=== PATIENT | male | born 1965 | race Two or more races ===

== ENCOUNTER 2019-05-07 15:12 | Emergency (ER) | payer MEDICAID ==
[~2019-05-07] VITALS: Ht 165.1 cm; Wt 74.8 kg
[2019-05-07] MEDS ORDERED: FLUORESCEIN SODIUM OPHTH 1 EA STRIP ONE ×2 (15:51→16:07)
[2019-05-07] MEDS ORDERED: TETRAcaine 5 ML BOTTLE EACHEYE ONE (16:00)
[2019-05-07] MEDS ORDERED: FLUORESCEIN SODIUM OPHTH 1 EA STRIP OP ONE (16:00)
--- NOTE | 2019-05-07 16:00 | NUR ---
PATIENT CAME IN TO THE ER C/O PAIN AND REDNESS TO R EYE X 3 DAYS FROM POWDER FALLING FROM CEILING. ON ROOM AIR, BREATHING EVENLY AND UNLABORED. KEPT COMFORTABLE, WILL CONTINUE TO MONITOR ACCORDINGLY.
[2019-05-07 16:39] VITALS: BP 167/88
--- NOTE | 2019-05-07 16:41 | NUR ---
Patient discharged to home in stable condition. Written and verbal after care instructions given. Patient verbalizes understanding of instruction.
== END 2019-05-07 16:41 | disposition home or self-care (01) ==
LOC: ER 15:13
DX: S05.01XA Injury of conjunctiva and corneal abrasion without foreign body, right eye, initial encounter (principal); Z60.2 Problems related to living alone; X58.XXXA Exposure to other specified factors, initial encounter; Y93.89 Activity, other specified; Y92.89 Other specified places as the place of occurrence of the external cause; Y99.0 Civilian activity done for income or pay

== ENCOUNTER 2020-02-29 14:13 | Inpatient (IN) | payer MEDICAID ==
[~2020-02-29] VITALS: Ht 165.1 cm; Wt 74.8 kg
--- NOTE | 2020-02-29 14:40 | NUR ---
ASSUME PT CARE. BEEN C/O SOB X "3 WEEKS" STATES PROGRESSIVELY GETTING WORST. PT IS [place] SPEAKING. GOWNED. HYPOXIC PRESIDENT COLLEGE OR UNIVERSITY. AWAITING MD KITCHEN.
--- NOTE | 2020-02-29 15:11 | NUR ---
DR NGUYEN AT BEDSIDE FOR EVAL.
[2020-02-29] MEDS ORDERED: IPRATROPIUM NEB FS 0.5 MG/2.5 ML AMPUL.NEB ONE (15:16)
[2020-02-29] MEDS ORDERED: ALBUTEROL FS 2.5 MG/3 ML VIAL.NEB ONE (15:16)
--- NOTE | 2020-02-29 15:18 | NUR ---
RT AT BEDSIDE FOR BREATHING TREATMENT
--- NOTE | 2020-02-29 15:18 | NUR ---
RADIOLOGY AT BEDSIDE FOR CHEST XRAY.
[2020-02-29] MEDS ORDERED: IPRATROPIUM NEB FS 0.5 MG/2.5 ML AMPUL.NEB NEB ONE (15:30)
[2020-02-29] MEDS ORDERED: DEXAMETHASONE SOD PHOSPHATE 10 MG/ML VIAL IV ONE (15:30)
[2020-02-29] MEDS ORDERED: ALBUTEROL FS 2.5 MG/3 ML VIAL.NEB NEB ONE (15:30)
[2020-02-29 15:47] LABS: BASOPHILS # (AUTO) 0.4 /CMM (0.0-0.2); BASOPHILS % (AUTO) 4.7 % (0.0-2.0); EOSINOPHILS % (AUTO) 1.3 % (0.0-6.0); HEMATOCRIT 43 % (39-51); HEMOGLOBIN 15.1 g/dL (13.5-17.5); LYMPHOCYTES # (AUTO) 0.6 /CMM (0.8-4.8); LYMPHOCYTES % (AUTO) 8.5 % (20.0-44.0); MEAN CORPUSCULAR HGB CONC 35 g/dl (31.0-36.0); MEAN CORPUSCULAR VOLUME 95 fL (80-96); MONOCYTES # (AUTO) 0.5 /CMM (0.1-1.30); MONOCYTES % (AUTO) 7.2 % (2.0-12.0); NEUTROPHILS % (AUTO) 78.3 % (43.0-81.0); PLATELET COUNT (AUTO) 593 /CMM (150-450); RED BLOOD CELL COUNT(AUTO) 4.57 MIL/uL (4.5-6.0); WHITE BLOOD COUNT (AUTO) 7.6 K/uL (4.3-11.0)
[2020-02-29] MEDS ORDERED: DEXAMETHASONE SOD PHOSPHATE 10 MG/ML VIAL ONE (15:53)
[2020-02-29] MEDS ORDERED: CEFTRIAXONE 1GM BAG (ER ONLY) 50 ML IV ONE (16:00)
[2020-02-29] MEDS ORDERED: AZITHROMYCIN 500 MG in IV D5W 250 ML IV ONE (16:00)
[2020-02-29 16:25] LABS: CALCIUM, SERUM 9.3 mg/dL (8.5-10.1); CARBON DIOXIDE 26 mmol/L (21-32); CHLORIDE 104 mmol/L (98-107); CREATININE 0.8 mg/dL (0.6-1.3); GLUCOSE 100 mg/dL (74-106); POTASSIUM 4.1 mmol/L (3.5-5.1); SODIUM SERUM 140 mmol/L (136-145); UREA NITROGEN, BLOOD 17 mg/dL (7-18)
[2020-02-29 16:29] LABS: ALANINE AMINOTRANSFERASE 38 U/L (12-78); ALBUMIN 2.2 g/dL (3.4-5.0); ALKALINE PHOSPHATASE 98 U/L (46-116); ASPARTATE AMINOTRANSFERASE 57 U/L (15-37); BILIRUBIN,TOTAL 0.6 mg/dL (0.2-1.0); TOTAL PROTEIN, SERUM 8.3 g/dL (6.4-8.2)
[2020-02-29] MEDS ORDERED: MAGNESIUM HYDROXIDE 30 ML UDC PO PRN (16:30)
[2020-02-29] MEDS ORDERED: HYDROCODONE/APAP 5/325MG TABLET PO PRN (16:30)
[2020-02-29] MEDS ORDERED: Z GUARD REMEDY 2 OZ OINT TP PRN (16:30)
[2020-02-29] MEDS ORDERED: ONDANSETRON HCL/PF 4 MG/2 ML VIAL IVP PRN (16:30)
--- NOTE | 2020-02-29 16:39 | NUR ---
PT SATTING AT 91% ON 6L NC. DR NGUYEN MADE AWARE.
[2020-02-29 18:40] LABS: BILIRUBIN,DIRECT 0.2 mg/dL (0.0-0.2)
--- NOTE | 2020-02-29 18:40 | NUR ---
DAUGHTER CALLED. LEFT CONTACT #[phone]
--- NOTE | 2020-02-29 19:45 | NUR ---
REPORT GIVEN TO DANIEL SULLIVAN FOR MAURICE.
--- NOTE | 2020-02-29 19:48 | NUR ---
REC'D REPORT FROM LAURIE MARTINEZ FOR MAURICE. PT RESTING COMFORTABLY IN BED. STILL ON HIGH FLOW O2 60L/MIN, 93% O2. PT TOLERATING WELL, O2 SAT 99%. RESPIRATIONS EVEN AND UNLABORED. NO ACUTE DISTRESS NOTED AT THIS TIME. PT STILL ON CONTINUOUS CROP FARM HELPER AND PULSE OX, WILL CONTINUE TO MONITOR
--- NOTE | 2020-02-29 20:39 | NUR ---
SWAB COLLECTED AND SENT TO THE LAB.
[2020-02-29] MEDS ORDERED: ENOXAPARIN SODIUM 40 MG/0.4 ML DISP.SYRIN SQ SCH (21:00)
--- NOTE | 2020-03-01 03:21 | NUR ---
PT RESTING COMFORTABLY IN BED. VITAL SIGNS STABLE. STILL ON CONTINUOUS PROSECUTING ATTORNEY AND PULSE OX, WILL CONTINUE TO MONITOR
[2020-03-01 05:19] LABS: MONOCYTES # (AUTO) 0.3 /CMM (0.1-1.30); WHITE BLOOD COUNT (AUTO) 4.4 K/uL (4.3-11.0)
[2020-03-01 05:24] LABS: BASOPHILS % (AUTO) 0.2 % (0.0-2.0); HEMATOCRIT 41 % (39-51); HEMOGLOBIN 14.2 g/dL (13.5-17.5); LYMPHOCYTES # (AUTO) 0.6 /CMM (0.8-4.8); LYMPHOCYTES % (AUTO) 12.9 % (20.0-44.0); MEAN CORPUSCULAR HGB CONC 35 g/dl (31.0-36.0); MEAN CORPUSCULAR VOLUME 94 fL (80-96); MONOCYTES % (AUTO) 6.8 % (2.0-12.0); NEUTROPHILS # (AUTO) 3.6 /CMM (1.8-8.9); NEUTROPHILS % (AUTO) 80.1 % (43.0-81.0); PLATELET COUNT (AUTO) 587 /CMM (150-450); RED BLOOD CELL COUNT(AUTO) 4.29 MIL/uL (4.5-6.0)
[2020-03-01 05:30] LABS: CALCIUM, SERUM 9.3 mg/dL (8.5-10.1); CREATININE 0.9 mg/dL (0.6-1.3); MAGNESIUM 2.8 mg/dL (1.8-2.4); PHOSPHORUS 4.1 mg/dL (2.5-4.9); POTASSIUM 4.3 mmol/L (3.5-5.1)
--- NOTE | 2020-03-01 07:23 | NUR ---
REPORT GIVEN TO LAURIE MARTINEZ FOR MAURICE
[2020-03-01] MEDS: DEXAMETHASONE SOD PHOSPHATE 10 MG/ML VIAL IV SCH (10:00)
--- NOTE | 2020-03-01 11:30 | NUR ---
RECEIVED AND RESUMED PT CARE. PT IN BED, AAOX4. ON HIFLOW O2 @ 65LPM @ 100%. BREATHING REGULAR BUT SHALLOW. VSS.
[2020-03-01 11:46] LABS: D-DIMER 3.89 mg/L(FEU (0.17-0.50)
[2020-03-01] MEDS: ENOXAPARIN SODIUM 40 MG/0.4 ML DISP.SYRIN SQ SCH (13:30)
[2020-03-01] MEDS: CEFTRIAXONE 1 G in IV D5W 50 ML IV SCH (16:11)
[2020-03-01] MEDS: AZITHROMYCIN 500 MG in IV D5W 250 ML IV SCH (17:15)
--- NOTE | 2020-03-01 18:16 | NUR ---
COVID PCR RESULT: POSITIVE +
--- NOTE | 2020-03-01 18:40 | NUR ---
PT AMBULATED TO BATHROOM ON STAEADY GAIT W/O ASSIST. TOLERATED WELL WITHOUT ANY SOB.
--- NOTE | 2020-03-01 20:23 | NUR ---
RT AT BEDSIDE.
--- NOTE | 2020-03-01 21:57 | NUR ---
PT AMBULATED TO THE RESTROOM.
--- NOTE | 2020-03-01 23:24 | NUR ---
TOOK OVER PT CARE FROM, ABHILASH SULLIVAN. PT AAOX4. IN BED RESTING COMFORTABLY. PROVIDED WITH BLANKET AND PILLOW. PT ON MONITOR AND PULSE OX. VSS.
--- NOTE | 2020-03-01 23:26 | NUR ---
pt endorsed to lea Bautista for luis miguel
--- NOTE | 2020-03-01 23:31 | NUR ---
PT PROVIDED WITH BLANKETS AND PILLOW, REPOSITIONED Q2 HRS.
--- NOTE | 2020-03-01 23:48 | NUR ---
PT REQUESTED OJ, SUGAR CHECKED AT 132, PT WILL BE PROVIDED WITH WATER.
[2020-03-02] MEDS: ENOXAPARIN SODIUM 40 MG/0.4 ML DISP.SYRIN SQ SCH ×2 (00:32→13:20)
--- NOTE | 2020-03-02 01:09 | NUR ---
PT REPOSITIONED, ASLEEP. VSS.
--- NOTE | 2020-03-02 03:21 | NUR ---
PT ASLEEP, VSS. APPEARS TO BE COMFORTABLE, CALL LIGHT AT BEDSIDE.
--- NOTE | 2020-03-02 04:59 | NUR ---
BRACELET MAKER NOVELTY AT BEDSIDE FOR MONRING LABS.
[2020-03-02 06:04] LABS: BASOPHILS # (AUTO) 0.1 /CMM (0.0-0.2); BASOPHILS % (AUTO) 1.1 % (0.0-2.0); HEMATOCRIT 41 % (39-51); HEMOGLOBIN 14.2 g/dL (13.5-17.5); LYMPHOCYTES # (AUTO) 0.8 /CMM (0.8-4.8); LYMPHOCYTES % (AUTO) 6.4 % (20.0-44.0); MEAN CORPUSCULAR HGB CONC 35 g/dl (31.0-36.0); MEAN CORPUSCULAR VOLUME 95 fL (80-96); MONOCYTES # (AUTO) 0.7 /CMM (0.1-1.30); MONOCYTES % (AUTO) 5.4 % (2.0-12.0); NEUTROPHILS # (AUTO) 11.2 /CMM (1.8-8.9); NEUTROPHILS % (AUTO) 87.1 % (43.0-81.0); PLATELET COUNT (AUTO) 657 /CMM (150-450); RED BLOOD CELL COUNT(AUTO) 4.33 MIL/uL (4.5-6.0); WHITE BLOOD COUNT (AUTO) 12.9 K/uL (4.3-11.0)
[2020-03-02 06:21] LABS: CALCIUM, SERUM 8.9 mg/dL (8.5-10.1); CREATININE 0.7 mg/dL (0.6-1.3); POTASSIUM 3.6 mmol/L (3.5-5.1)
--- NOTE | 2020-03-02 06:44 | NUR ---
PT REPOSITIONED, PROVIDED WITH BLANKETS.
--- NOTE | 2020-03-02 07:18 | NUR ---
REPORT GIVEN TO RAUL SULLIVAN FOR MAURICE
[2020-03-02 07:32] LABS: C-REACTIVE PROTEIN 12.2 mg/dL (0.0-0.9)
[2020-03-02] MEDS: DEXAMETHASONE SOD PHOSPHATE 10 MG/ML VIAL IV SCH (08:19)
--- NOTE | 2020-03-02 09:23 | NUR ---
PATIENT A/OX4, ON HIGH FLOW AND TOLERATING WELL, NO DSITRESS NOTED. BREAKFAST PROVIDED.
[2020-03-02] MEDS ORDERED: CLONIDINE HCL 0.1 MG TABLET PO PRN (10:00)
[2020-03-02] MEDS: NIFEdipine XL (30MG) 30 MG TAB PO SCH (10:00)
[2020-03-02 14:56] LABS: ALBUMIN 2.3 g/dL (3.4-5.0); BILIRUBIN,DIRECT 0.1 mg/dL (0.0-0.2); BILIRUBIN,TOTAL 0.3 mg/dL (0.2-1.0); TOTAL PROTEIN, SERUM 7.9 g/dL (6.4-8.2)
[2020-03-02] MEDS ORDERED: REMDESIVIR (CHARGED) 200 MG, *LOADING DOSE 1 EA in IV NS 0.9% 210 ML IV ONE (15:00)
--- NOTE | 2020-03-02 15:18 | NUR ---
PATIENT ON HIGH FLOW SAME SETTINGS. AND TOLERATINGW ELL. ATE LUNCH. A/OX4, NEEDS ATTENDED. REPORT GIVEN TO SEDA SULLIVAN FOR MAURICE. ENDORSED REMDESIVIR.
--- NOTE | 2020-03-02 15:49 | NUR ---
PATIENT TRANSFERRED TO ROOM 206-1 VIA ACLS PROTOCOL WITH RT PRESENT. PATIENT A/OX4, NO DISTRESS NOTED. ENDORSED TO SEDA SULLIVAN. Addendum: 03/02/20 at 1549 by ROBLADEANCES ADDENDUM: ENDORSED REMDESIVIR.
[2020-03-02 16:00] VITALS: BP 126/79
--- NOTE | 2020-03-02 16:30 | NUR ---
RN NOTES PT ARRIVED FROM ER IN A GURNEY PT AWAKE ALERT AND ORIENTED X4 PUPILS EQUAL AND REACTIVE TO LIGHT AND ACCOMMODATION. IS A MONGOLIAN SPEAKER UNDERSTANDS VERY LITTLE SLOVENIAN. NO PAIN OR DISCOMFORT VISIBLE OR REPORTED. NO SOB NOTED OR REPORTED. PT IS ON HIGH FLOW 60 L OF OXYGEN WITH A OXYGEN SATURATION OF 94%. LUNG SOUNDS ARE CLEAR BILATERALLY RR IS 19 ON TELE MONITORING RHYTHM IS SINUS RHYTHM 66. SKIN IS CLEAN WARM AND DRY NO SIGNS OF EDEMA NOTED NO SKIN DISCOLORATION SKIN TURGOR IS FAIR. ABDOMEN IS NON DISTENDED NON TENDER TO TOUCH. ACTIVE BOWEL SOUNDS HEARD IN ALL FOUR QUADRANTS. PATIENT IS AMBULATORY. PATIENT HAS IV ACCESS ON THE LEFT AC 18 GAUGE NO PAIN SWELLING OR REDNESS NOTED AT SITE. CALL LIGHT WITHIN REACH.BED LOCKED IN POSITION PATIENT ORIENTED TO UNIT. WILL CONTINUE TO MONITOR Addendum: 03/02/20 at 1911 by CHERYL PRO RN CALL LIGHT WITHIN REACH ALL NURSING NEEDS MET AT THIS TIME. WILL CONTINUE TO MONITOR
[2020-03-02] MEDS: CEFTRIAXONE 1 G in IV D5W 50 ML IV SCH (17:39)
[2020-03-02] MEDS: AZITHROMYCIN 500 MG in IV D5W 250 ML IV SCH (18:15)
--- NOTE | 2020-03-02 18:20 | NUR ---
PT DESATURATES TO 83% AFTER EATING HIS DINNER WHEN HE REMOVES HIS HIGH FLOW OXYGEN.BUT PT DENIES ANY SOB.PT EVEN WENT TO THE TOILET ON ROOM AIR DENYING FEELING DIZZY. PT RESUMED BACK TO 95%O2 SAT ON HIGH FLOW.WITH OCCASIONAL DRY COUGH.INSTRUCTED THAT WE NEED TO COLLECT RESPIRATORY SPUTUM C/S G/S.
--- NOTE | 2020-03-02 18:30 | NUR ---
PT REFUSED CONVALESCENT PLASMA TRANSFUSION EXPLAINING THE RISKS AND BENEFITS,PT INSISTS TO REFUSE.
--- NOTE | 2020-03-02 19:09 | NUR ---
RN NOTES PT AWAKE ALERT AND ORIENTED X4 PUPILS EQUAL AND REACTIVE TO LIGHT AND ACCOMMODATION. IS A KOREAN SPEAKER UNDERSTANDS VERY LITTLE ESTONIAN. NO PAIN OR DISCOMFORT VISIBLE OR REPORTED. NO SOB NOTED OR REPORTED. PT IS ON HIGH FLOW 60 L OF OXYGEN WITH A OXYGEN SATURATION OF 94%. LUNG SOUNDS ARE CLEAR BILATERALLY RR IS 19 ON TELE MONITORING RHYTHM IS SINUS RHYTHM 66. SKIN IS CLEAN WARM AND DRY NO SIGNS OF EDEMA NOTED NO SKIN DISCOLORATION SKIN TURGOR IS FAIR. ABDOMEN IS NON DISTENDED NON TENDER TO TOUCH. WILL ENDORSE CARE TO ON COMING NURSE
--- NOTE | 2020-03-02 19:30 | NUR ---
RN OPENING NOTES Received patient resting on bed, resting, A/O x4, on HFNC @ 60LPM FiO2 100%, saturating well, denies any discomfort at this time. Pt refused blood transfusion/convalescent plasma at this time. Kept on bed clean, dry and comfortable. On fall and aspiration precautions. Will continue to monitor accordingly.
[2020-03-02 20:00] VITALS: BP 114/78
[2020-03-03] VITALS: BP 105/55
[2020-03-03] MEDS: ENOXAPARIN SODIUM 40 MG/0.4 ML DISP.SYRIN SQ SCH ×2 (00:30→11:47)
--- NOTE | 2020-03-03 02:15 | NUR ---
REPORTS RECEIVED FROM LAURIE HUGHES FOR CONTINUITY OF CARE.
--- NOTE | 2020-03-03 02:15 | NUR ---
RECEIVED PATIENT IN BED, ASLEEP. NO S/S OF DISTRESS NOTED. CALL LIGHT WITHIN REACH. BED IN LOWEST AND LOCKED POSITION.ON HFNC AT60L/MIN.
[2020-03-03 04:00] VITALS: BP 113/68
--- NOTE | 2020-03-03 06:45 | NUR ---
TERMITE TREATER HELPER CLOSING NOTES: PATIENT IN BED, AWAKE, A/O X4. NO S/S OF DISTRESS NOTED. CALL LIGHT WITHIN REACH. BED IN LOWEST AND LOCKED POSITION. RESTED THROUGHOUT THE NIGHT.
[2020-03-03 08:00] VITALS: BP 101/52
--- NOTE | 2020-03-03 08:00 | NUR ---
EMPLOYMENT TRAINER OPENING NOTES RECEIVED PT ON BED, AAOX4, RESPONSIVE TO ALL STIMULI. NO PRESENCE OF ACUTE RESPIRATORY DISTRESS, HIGH FLOW 60 LPM. ABD SOFT AND NON DISTENDED WITH ACTIVE BOWEL SOUNDS. DENIES PAIN AND DISCOMFORT. SKIN WARM TO TOUCH AND DRY. IV LINE AT LAC #18 PATENT IN FLUSHING, NO S/SX OF INFILTRATION. TELE MONITOR SHOWS NSR 64. COVID POSITIVE, PPE UTILIZED PER HOSPITAL PROTOCOL. BED IN LOW LOCKED POSITION, SRX2 FOR SAFETY, CALL LIGHT WITHIN REACH. WILL CONT TO MONITOR CARE.
[2020-03-03 08:02] LABS: BASOPHILS % (AUTO) 0.2 % (0.0-2.0); HEMATOCRIT 42 % (39-51); LYMPHOCYTES # (AUTO) 1.2 /CMM (0.8-4.8); LYMPHOCYTES % (AUTO) 11.8 % (20.0-44.0); MEAN CORPUSCULAR HGB CONC 35 g/dl (31.0-36.0); MEAN CORPUSCULAR VOLUME 94 fL (80-96); MONOCYTES # (AUTO) 0.7 /CMM (0.1-1.30); MONOCYTES % (AUTO) 7.1 % (2.0-12.0); NEUTROPHILS # (AUTO) 8.4 /CMM (1.8-8.9); NEUTROPHILS % (AUTO) 80.9 % (43.0-81.0); PLATELET COUNT (AUTO) 692 /CMM (150-450); RED BLOOD CELL COUNT(AUTO) 4.51 MIL/uL (4.5-6.0); WHITE BLOOD COUNT (AUTO) 10.5 K/uL (4.3-11.0)
[2020-03-03 08:05] LABS: ALBUMIN 2.3 g/dL (3.4-5.0); BILIRUBIN,DIRECT 0.2 mg/dL (0.0-0.2); BILIRUBIN,TOTAL 0.4 mg/dL (0.2-1.0); CALCIUM, SERUM 8.6 mg/dL (8.5-10.1); CREATININE 0.7 mg/dL (0.6-1.3); POTASSIUM 3.9 mmol/L (3.5-5.1); TOTAL PROTEIN, SERUM 7.6 g/dL (6.4-8.2)
--- NOTE | 2020-03-03 08:15 | NUR ---
SIX PACK PACKER NOTES PER RT. HIGH FLOW RATE REDUCED TO 50 LPM SATING 100%.
[2020-03-03 08:20] LABS: C-REACTIVE PROTEIN 5.4 mg/dL (0.0-0.9)
[2020-03-03] MEDS: NIFEdipine XL (30MG) 30 MG TAB PO SCH (09:00)
[2020-03-03] MEDS: DEXAMETHASONE SOD PHOSPHATE 10 MG/ML VIAL IV SCH (09:23)
--- NOTE | 2020-03-03 09:23 | NUR ---
CHEMICAL PLANT TECHNICAL DIRECTOR NOTES NIFEDIPINE ER HELD DUE TO LOW BP 101/52 MM HG, HR 59.
[2020-03-03 12:00] VITALS: BP 101/54
[2020-03-03] MEDS: REMDESIVIR (CHARGED) 100 MG in IV NS 0.9% 230 ML IV SCH (14:57)
--- NOTE | 2020-03-03 15:18 | NUR ---
PROCESS PLANT OPERATOR NOTES PER RT, HIGH FLOW REDUCED TO 40 LPM WITH FIO2 AT 100%.
[2020-03-03 16:00] VITALS: BP 104/63
--- NOTE | 2020-03-03 19:07 | NUR ---
VICE PRESIDENT OF ADVERTISING CLOSING NOTES PT AAOX4. TOLERATING HIGH FLOW AT 50 LPM, FIO2 AT 100%, SATING 98%. BM TODAY. DENIES PAIN AND DISCOMFORT. NO NEW SKIN BREAKDOWN. IV SITE AT LEFT HAND #18. SITE WITH NO S/SX OF INFILTRATION. COVID+ WITH PPE UTILIZED PROPERLY. TELE MONITOR SHOWS NSR 74. ALL CARE ATTENDED. ENDORSED CARE TO NEXT SHIFT.
--- NOTE | 2020-03-03 19:35 | NUR ---
OPERATIONS SUPERVISOR 2ND SHIFT NOTES PATIENT IN BED, AWAKE, ALERT AND ORIENTED X 4. BREATHING EVEN AND UNLABORED ON 50LMP. SHOWS NO SIGNS OF ACUTE RESPIRATORY DISTRESS. NO ACUTE PAIN. TELE MONITOR SR/SB. IV ON LAC 18G ITS CLEAN DRY AND INTACT. SHOWS NO SIGNS OF INFILTRATION, NO REDNESS. SAFETY PRECAUTIONS IN PLACE. BED IN LOWEST POSITION, LOCKED, AND CALL LIGHT KEPT WITHIN REACH. WILL CONTINUE TO MONITOR.
[2020-03-03 20:00] VITALS: BP 132/67
[2020-03-04] VITALS: BP 107/61
[2020-03-04] MEDS: ENOXAPARIN SODIUM 40 MG/0.4 ML DISP.SYRIN SQ SCH ×2 (00:19→11:55)
--- NOTE | 2020-03-04 00:19 | NUR ---
ONLINE ADVERTISING ANALYST NOTES LOVENOX DUE AT 0030. PT REFUSED MEDICATION, EDUCATED ON RISKS AND BENEFITS. MEDICATION WASTED IN PROPER DISPOSAL BIN.
--- NOTE | 2020-03-04 03:03 | NUR ---
PATIENT RECEIVED ON HFNC 40L 100%, TOLERATING WELL WITH NO DISTRESS/SOB NOTED. AMBU BAG AT BEDSIDE. HFNC ALARM AUDIBLE. Addendum: 03/04/20 at 0304 by DONALD GODINEZ RT Amended: Links added.
[2020-03-04 04:00] VITALS: BP 111/72
--- NOTE | 2020-03-04 06:34 | NUR ---
TOOL CRIB CLERK NOTES PATIENT IN BED, ASLEEP, ALERT AND ORIENTED X 4. BREATHING EVEN AND UNLABORED ON 50LPM. SHOWS NO SIGNS OF ACUTE RESPIRATORY DISTRESS. NO ACUTE PAIN. TELE MONITOR SR/SB. IV ON LAC 18G ITS CLEAN DRY AND INTACT. SHOWS NO SIGNS OF INFILTRATION, NO REDNESS. ALL DUE MEDICATIONS GIVEN. SAFETY PRECAUTIONS IN PLACE. BED IN LOWEST POSITION, LOCKED, AND CALL LIGHT KEPT WITHIN REACH. WILL ENDORSE TO ONCOMING NURSE.
[2020-03-04 07:08] LABS: BASOPHILS % (AUTO) 0.2 % (0.0-2.0); EOSINOPHILS % (AUTO) 0.1 % (0.0-6.0); HEMATOCRIT 41 % (39-51); HEMOGLOBIN 14.1 g/dL (13.5-17.5); LYMPHOCYTES # (AUTO) 1.1 /CMM (0.8-4.8); LYMPHOCYTES % (AUTO) 13.2 % (20.0-44.0); MEAN CORPUSCULAR HGB CONC 35 g/dl (31.0-36.0); MEAN CORPUSCULAR VOLUME 94 fL (80-96); MONOCYTES # (AUTO) 0.7 /CMM (0.1-1.30); MONOCYTES % (AUTO) 8.2 % (2.0-12.0); NEUTROPHILS # (AUTO) 6.4 /CMM (1.8-8.9); NEUTROPHILS % (AUTO) 78.3 % (43.0-81.0); PLATELET COUNT (AUTO) 626 /CMM (150-450); RED BLOOD CELL COUNT(AUTO) 4.31 MIL/uL (4.5-6.0); WHITE BLOOD COUNT (AUTO) 8.1 K/uL (4.3-11.0)
--- NOTE | 2020-03-04 07:25 | NUR ---
PACK MASTER NOTES PATIENT RECEIVED IN BED, ALERT AND ORIENTED X 4. ON CORPORATE SERVICES MANAGER SINUS RHYTHM 62. PATIENT BREATHING NON-LABORED AND NO RESPIRATORY DISTRESS AT THIS TIME. IV ACCESS INTACT AND PATENT. PATIENT PRESENTING WITH NO PAIN AT THIS TIME. SAFETY PRECAUTIONS IMPLEMENTED WITH BED LOCKED, BILATERAL SIDE RAILS UP, BED ALARM ON, BED IN THE LOWEST POSITION, AND CALL LIGHT WITHIN EASY REACH, WILL CONTINUE TO MONITOR.
[2020-03-04 07:52] LABS: ALBUMIN 2.2 g/dL (3.4-5.0); BILIRUBIN,DIRECT 0.1 mg/dL (0.0-0.2); BILIRUBIN,TOTAL 0.4 mg/dL (0.2-1.0); CALCIUM, SERUM 8.3 mg/dL (8.5-10.1); CREATININE 0.7 mg/dL (0.6-1.3); POTASSIUM 3.7 mmol/L (3.5-5.1); TOTAL PROTEIN, SERUM 6.7 g/dL (6.4-8.2)
[2020-03-04 08:00] VITALS: BP 103/60
[2020-03-04] MEDS: DEXAMETHASONE SOD PHOSPHATE 10 MG/ML VIAL IV SCH (08:43)
[2020-03-04] MEDS: NIFEdipine XL (30MG) 30 MG TAB PO SCH (08:44)
[2020-03-04] MEDS: MAG HYDROX/AL HYDROX/SIMETH 30 ML UDC PO PRN (10:47)
[2020-03-04 12:00] VITALS: BP 107/64
[2020-03-04] MEDS: REMDESIVIR (CHARGED) 100 MG in IV NS 0.9% 230 ML IV SCH (15:02)
[2020-03-04 16:00] VITALS: BP 123/75
--- NOTE | 2020-03-04 18:53 | NUR ---
RN HYPERBARIC NOTES PATIENT IN BED RESTING COMFORTABLY, ALERT AND ORIENTED X 4. ON PHYSICIST SOLID STATE SINUS TRACEE 53. PATIENT BREATHING NON-LABORED AND NO RESPIRATORY DISTRESS AT THIS TIME. IV ACCESS INTACT AND PATENT SALINE LOCK. PATIENT PRESENTING WITH NO PAIN AT THIS TIME. MET ALL OF PATIENT'S NEEDS. SAFETY PRECAUTIONS IMPLEMENTED WITH BED LOCKED, BILATERAL SIDE RAILS UP, BED ALARM ON, BED IN THE LOWEST POSITION, AND CALL LIGHT WITHIN EASY REACH. WILL ENDORSE PLAN OF CARE TO UPCOMING RN.
--- NOTE | 2020-03-04 19:35 | NUR ---
CLINICAL DATA ASSISTANT NOTES PATIENT IN BED, AWAKE, ALERT AND ORIENTED X 4. BREATHING EVEN AND UNLABORED ON 50LMP. SHOWS NO SIGNS OF ACUTE RESPIRATORY DISTRESS. NO ACUTE PAIN. TELE MONITOR SR/SB. IV ON LAC 18G ITS CLEAN DRY AND INTACT.SHOWS NO SIGNS OF INFILTRATION, NO REDNESS. PT REFUSED CONVALESCENT PLASMA. SHOWS NO SIGNS OF INFILTRATION, NO REDNESS. SAFETY PRECAUTIONS IN PLACE. BED IN LOWEST POSITION, LOCKED, AND CALL LIGHT KEPT WITHIN REACH. WILL CONTINUE TO MONITOR.
[2020-03-05] MEDS: ENOXAPARIN SODIUM 40 MG/0.4 ML DISP.SYRIN SQ SCH ×2 (00:16→12:22)
--- NOTE | 2020-03-05 07:15 | NUR ---
RN Notes Patient is noted in bed, awake, alert and oriented x4 and able to make needs known. Breathing even and non labored currently receiving high flow o2 at 50L/min. No acute distress noted. Currently on tele monitor with SR/SB. IV site noted to L AC 18G noted to be patent and intact. No signs of infiltration noted. Bed in lowest position, locked and call light within reach.
[2020-03-05 07:22] LABS: BASOPHILS % (AUTO) 0.2 % (0.0-2.0); EOSINOPHILS % (AUTO) 0.4 % (0.0-6.0); HEMATOCRIT 41 % (39-51); HEMOGLOBIN 14.1 g/dL (13.5-17.5); LYMPHOCYTES # (AUTO) 1.2 /CMM (0.8-4.8); LYMPHOCYTES % (AUTO) 15.1 % (20.0-44.0); MEAN CORPUSCULAR HGB CONC 35 g/dl (31.0-36.0); MEAN CORPUSCULAR VOLUME 93 fL (80-96); MONOCYTES # (AUTO) 0.7 /CMM (0.1-1.30); MONOCYTES % (AUTO) 8.4 % (2.0-12.0); NEUTROPHILS % (AUTO) 75.9 % (43.0-81.0); PLATELET COUNT (AUTO) 611 /CMM (150-450); RED BLOOD CELL COUNT(AUTO) 4.35 MIL/uL (4.5-6.0); WHITE BLOOD COUNT (AUTO) 7.9 K/uL (4.3-11.0)
[2020-03-05 07:54] LABS: ALBUMIN 2.3 g/dL (3.4-5.0); BILIRUBIN,DIRECT 0.2 mg/dL (0.0-0.2); BILIRUBIN,TOTAL 0.4 mg/dL (0.2-1.0); CALCIUM, SERUM 8.3 mg/dL (8.5-10.1); CREATININE 0.7 mg/dL (0.6-1.3); POTASSIUM 3.9 mmol/L (3.5-5.1); TOTAL PROTEIN, SERUM 6.7 g/dL (6.4-8.2)
[2020-03-05 08:00] VITALS: BP 105/81
[2020-03-05 08:41] VITALS: BP 105/81
[2020-03-05] MEDS: NIFEdipine XL (30MG) 30 MG TAB PO SCH (08:48)
[2020-03-05] MEDS: DEXAMETHASONE SOD PHOSPHATE 10 MG/ML VIAL IV SCH (09:09)
[2020-03-05 12:00] VITALS: BP 101/56
[2020-03-05] MEDS: ACETAMINOPHEN 325 MG TABLET PO PRN ×2 (12:56→22:17)
[2020-03-05] MEDS: GUAIFENESIN/D-METHORPHAN HB 5 ML UDC PO PRN ×2 (12:56→22:17)
[2020-03-05 16:00] VITALS: BP 98/58
[2020-03-05] MEDS: REMDESIVIR (CHARGED) 100 MG in IV NS 0.9% 230 ML IV SCH (16:10)
--- NOTE | 2020-03-05 19:30 | NUR ---
RN Notes Patient is noted in bed, awake, alert and oriented x4 and able to make needs known. Breathing even and non labored currently receiving 6L via NC and tolerating well. No episodes of desaturation or acute distress noted. Continues on tele monitor with SR/SB noted. IV site noted to RAC at 20G, patent and intact, no signs of infiltration noted. All meds given as ordered and tolerated well. Bed in lowest position, locked and call light within reach. Will endorse to oncoming shift.
[2020-03-05 20:00] VITALS: BP_SYST 103; BP_DIAS 51; BP_DIAS 52
--- NOTE | 2020-03-05 20:00 | NUR ---
licensed massage therapist opening notes Received Pt from morning nurse. Pt is sitting in bed comfortably in bed. Pt is alert and orientedX4. Respiration on 5 L NC. No SOB. No S/s of distress noted. IV sites at LAC# 18 is clean, intact and flushes well, SL. Tele monitor showed SR HR at 78 bpm. Safety precautions is maintained. Bed at low position, brakes locked, side rails upX2, urinal at the bed side and call light is within reach. Will continue to monitor. Addendum: 03/06/20 at 0745 by JENIFER العلي RN IV site at R forearm# 18 is clean, intact, flushes well, SL.
--- NOTE | 2020-03-05 22:17 | NUR ---
dairy cattle farm manager notes Pt's complaining of cough and requesting medication. Administered robitussin Dm 10 ml/po as ordered for cough. Safety precautions is maintained. Will continue to monitor.
[2020-03-06] VITALS: BP 101/52
[2020-03-06] MEDS: ENOXAPARIN SODIUM 40 MG/0.4 ML DISP.SYRIN SQ SCH ×2 (00:17→21:44)
[2020-03-06 04:00] VITALS: BP 95/58
--- NOTE | 2020-03-06 06:47 | NUR ---
supervisor home economics notes Pt refused morning labs. Offered multiple times. Explained risks and benefits. Pt get agitated easily. Pt keep refusing. Pt stated "You put it everyday!!" Informed powder mixer to come again later.
--- NOTE | 2020-03-06 07:10 | NUR ---
storekeeper engineering closing notes Pt is resting in bed comfortably in bed. Pt is alert and orientedX4. Respiration on 5 L NC. No SOB. No S/s of distress noted. IV sites at R forearm# 18 is clean, intact and flushes well, SL. Tele monitor showed Sinus todd HR at 54 bpm. VS is stable. Afebrile. Routine meds were given as ordered. Kept Pt clean, dry and comfortable. All needs met and attended. Safety precautions is maintained. Bed at low position, brakes locked, side rails upX2, urinal at the bed side and call light is within reach. Will endorse to morning nurse for MAURICE.
--- NOTE | 2020-03-06 07:15 | NUR ---
RN Notes Patient Received. Patient is noted in bed, awake, alert and oriented x4. Patient is able to make needs known. Breathing is even and on labored currently on 5L via NC with no signs of acute distress noted. IV site is noted to Right forearm with 18G noted to be patent and intact. No signs of infiltration noted. Bed is in lowest position and locked. Call light within reach. Will continue plan of care as ordered.
[2020-03-06 08:00] VITALS: BP_SYST 104; BP_SYST 106; BP_SYST 87; BP_DIAS 45; BP_DIAS 55; BP_DIAS 56
[2020-03-06] MEDS: DEXAMETHASONE SOD PHOSPHATE 10 MG/ML VIAL IV SCH (09:26)
[2020-03-06] MEDS: NIFEdipine XL (30MG) 30 MG TAB PO SCH (09:26)
[2020-03-06 12:00] VITALS: BP 106/55
--- NOTE | 2020-03-06 12:34 | NUR ---
RN NOTES PATIENT REQUESTED FOR LOVENOX TO BE GIVEN AT NOC TIME, INFORMED DR. DAMON WITH ORDER TO CHANGE TIME OF LOVENOX ADMINISTRATION TO NOC.
[2020-03-06 14:32] LABS: BASOPHILS % (AUTO) 0.3 % (0.0-2.0); EOSINOPHILS % (AUTO) 0.3 % (0.0-6.0); HEMATOCRIT 45 % (39-51); HEMOGLOBIN 15.7 g/dL (13.5-17.5); LYMPHOCYTES # (AUTO) 0.7 /CMM (0.8-4.8); LYMPHOCYTES % (AUTO) 7.6 % (20.0-44.0); MEAN CORPUSCULAR HGB CONC 35 g/dl (31.0-36.0); MEAN CORPUSCULAR VOLUME 94 fL (80-96); MONOCYTES # (AUTO) 0.7 /CMM (0.1-1.30); MONOCYTES % (AUTO) 6.7 % (2.0-12.0); NEUTROPHILS # (AUTO) 8.3 /CMM (1.8-8.9); NEUTROPHILS % (AUTO) 85.1 % (43.0-81.0); PLATELET COUNT (AUTO) 643 /CMM (150-450); RED BLOOD CELL COUNT(AUTO) 4.79 MIL/uL (4.5-6.0); WHITE BLOOD COUNT (AUTO) 9.8 K/uL (4.3-11.0)
[2020-03-06 14:48] LABS: ALBUMIN 2.5 g/dL (3.4-5.0); BILIRUBIN,DIRECT 0.1 mg/dL (0.0-0.2); BILIRUBIN,TOTAL 0.3 mg/dL (0.2-1.0); CALCIUM, SERUM 8.5 mg/dL (8.5-10.1); CREATININE 0.8 mg/dL (0.6-1.3); TOTAL PROTEIN, SERUM 7.1 g/dL (6.4-8.2)
--- NOTE | 2020-03-06 15:21 | NUR ---
RN Notes Patient noted with saturation of 90% on RA. Patient is noted to be non-compliant with O2. Despite of risk and benefits explained. Patient verbalizes understanding and still noted to refuse O2. No signs of acute distress. NO SOB. No use of accessory muscles. Will continue to monitor with frequent visual checks rendered and encouragement.
[2020-03-06] MEDS: REMDESIVIR (CHARGED) 100 MG in IV NS 0.9% 230 ML IV SCH (15:47)
--- NOTE | 2020-03-06 19:10 | NUR ---
SERVICE REPRESENTATIVE OPENING NOTES RECEIVED PATIENT IN BED AWAKE ALERT AND ORIENTED X4, RESPIRATIONS EVEN AND UNLABORED WITH EQUAL RISE AND FALL OF CHEST, AT THIS TIME NOTED WALKING AROUND ROOM NO 02 IS ON AND STATES HE FEELS OKAY WITHOUT IT AT THIS TIME, 5L VIA NC PRN. ON CUSTOMER ADVOCATE SR 83, IV SITE TO LEFT FA #20G INTACT AND PATENT, NO REDNESS, NO INFILTRATION PRESENT, ORIENTED TO STAFF AND CALL LIGHT ALL NEEDS ATTENDED AT THIS TIME WILL CONTINUE TO MONITOR.
--- NOTE | 2020-03-06 19:43 | NUR ---
RN Notes Patient is noted in bed, awake, alert and oriented x4. Patient is noted able to make needs known. Breathing is even and non-labored currently on 5L via NC. No signs of acute distress noted. IV site is noted to left forearm 20G, patent, and intact. No signs of infiltration noted. Remdesivir completed and tolerated well. All medications administered as ordered and tolerated well. All needs attended to promptly. Bed is in lowest position and locked. Call light within reach. Will endorse to continue plan of care as ordered.
[2020-03-06 20:00] VITALS: BP 97/59
[2020-03-06] MEDS: GUAIFENESIN/D-METHORPHAN HB 5 ML UDC PO PRN (21:47)
[2020-03-06] MEDS: MAG HYDROX/AL HYDROX/SIMETH 30 ML UDC PO PRN (21:51)
--- NOTE | 2020-03-06 21:51 | NUR ---
TECHNICIAN TELECOMMUNICATION SYSTEMS NOTES PATIENT REQUESTED COUGH MEDICINE, PRN ROBITUSSIN GIVEN PATIENT ALSO REQUESTED MEDICATION FOR INDIGESTION MAALOX PRN GIVEN WILL CONTINUE TO MONITOR FOR EFFECTIVENESS.
[2020-03-07] VITALS: BP_SYST 98; BP_SYST 99; BP_DIAS 62; BP_DIAS 65
[2020-03-07 04:00] VITALS: BP_SYST 112; BP_SYST 117; BP_DIAS 49
[2020-03-07 06:08] LABS: BASOPHILS % (AUTO) 0.3 % (0.0-2.0); EOSINOPHILS % (AUTO) 1.2 % (0.0-6.0); HEMATOCRIT 43 % (39-51); HEMOGLOBIN 14.8 g/dL (13.5-17.5); LYMPHOCYTES # (AUTO) 1.9 /CMM (0.8-4.8); LYMPHOCYTES % (AUTO) 21.5 % (20.0-44.0); MEAN CORPUSCULAR HGB CONC 35 g/dl (31.0-36.0); MEAN CORPUSCULAR VOLUME 94 fL (80-96); MONOCYTES % (AUTO) 11.1 % (2.0-12.0); NEUTROPHILS # (AUTO) 5.7 /CMM (1.8-8.9); NEUTROPHILS % (AUTO) 65.9 % (43.0-81.0); PLATELET COUNT (AUTO) 622 /CMM (150-450); RED BLOOD CELL COUNT(AUTO) 4.58 MIL/uL (4.5-6.0); WHITE BLOOD COUNT (AUTO) 8.6 K/uL (4.3-11.0)
[2020-03-07 06:10] LABS: CALCIUM, SERUM 8.4 mg/dL (8.5-10.1); CREATININE 0.6 mg/dL (0.6-1.3); POTASSIUM 3.9 mmol/L (3.5-5.1)
--- NOTE | 2020-03-07 07:04 | NUR ---
IT SECURITY ENGINEER CLOSING NOTES PATIENT IN BED AWAKE ALERT AND ORIENTED X4, RESPIRATIONS EVEN AND UNLABORED WITH EQUAL RISE AND FALL OF CHEST, ON ROOM AIR STATES HE FEELS OKAY WITHOUT IT AT THIS TIME, 5L VIA NC PRN. CURRENT SP02 92%, NO SOB PRESENT, ON LEHR CUTTER SR 80, IV SITE TO LEFT FA #20G INTACT AND PATENT, NO REDNESS, NO INFILTRATION PRESENT, CALL LIGHT KEPT WITHIN REACH ALL NEEDS ATTENDED AT THIS TIME WILL CONTINUE TO MONITOR AND ENDORSE TO NEXT SHIFT, ROBITUSSIN EFFECTIVE PT SLEPT WELL, MAALOX WAS ALSO EFFECTIVE.
[2020-03-07 08:00] VITALS: BP 106/68
--- NOTE | 2020-03-07 08:00 | NUR ---
RN Opening note Received patient in bed, AO x 4 Welsh speaking able to responds all stimuli, Pt does no appears pain or distress. Skin is warm to touch keep clean/dry intact IV site, respiratory even and oxygen at 5 LPMs. Kept locked bed with elevated HOB for aspiration precaution and ensure airway and lowest bed foe safety. Patient yelling at primary nurse due to does not wants to drink water from here and asked family member to bring and picker tender water to down stair but takes for while to offer the patient. Call light within reach, will continue to monitor.
[2020-03-07] MEDS: NIFEdipine XL (30MG) 30 MG TAB PO SCH (09:00)
[2020-03-07] MEDS: DEXAMETHASONE SOD PHOSPHATE 10 MG/ML VIAL IV SCH (10:16)
[2020-03-07] MEDS: ENOXAPARIN SODIUM 40 MG/0.4 ML DISP.SYRIN SQ SCH ×2 (10:23→21:28)
[2020-03-07 12:00] VITALS: BP 119/75
[2020-03-07 16:00] VITALS: BP 100/73
--- NOTE | 2020-03-07 18:25 | NUR ---
RN Closing note Patient in bed finished meal, does no appears pain or discomfort. Respiratory even and unlabored with oxygen at 5LPM O2sat 100%, noticed dry cough. Skin is warm to touch keep clean/dry, intact IV site. Kept locked bed with elevated HOB for ensure airway and aspiration precaution and lowest bed for safety. Call light within reach will endorse retail shift leader.
--- NOTE | 2020-03-07 19:05 | NUR ---
TELE/RN OPENING NOTES: RECEIVED PATIENT IN BED AWAKE, A/OX4, NO SOB NOTED. AMBULATORY WITH STEADY GAIT. RESPIRATIONS EVEN AND UNLABORED. AT THIS TIME, PT IS ON ROOM AIR AND TOLERATING WELL. PER PT "I FEEL OKAY WITHOUT IT AT THIS TIME, I WILL PUT IT ON WHEN I NEED IT." 5L VIA NC PRN. ON SYSTEMS TECHNOLOGIST SR 80S, IV SITE TO LEFT FA #20G INTACT AND PATENT, SL. NO REDNESS, NO INFILTRATION PRESENT. SAFETY MEASURES ARE ON. CALL LIGHT WITHIN REACH. ALL NEEDS ATTENDED AT THIS TIME. WILL CONTINUE TO MONITOR.
[2020-03-07 20:00] VITALS: BP 128/78
[2020-03-07] MEDS: MAG HYDROX/AL HYDROX/SIMETH 30 ML UDC PO PRN (22:12)
--- NOTE | 2020-03-07 22:15 | NUR ---
TELE/RN RN NOTES: PT COMPLAINED OF FEELING ACID REFLUX, REQ. MAALOX. ADMINISTERED MAALOX 30ML, PO PRN FOR DYSPEPSIA. TOLERATED WELL. WILL CONTINUE TO MONITOR ACCORDINGLY.
[2020-03-08] VITALS: BP 112/57
[2020-03-08 04:00] VITALS: BP 108/63
--- NOTE | 2020-03-08 07:45 | NUR ---
SCIENCE AND OPERATIONS OFFICER NOTES PATIENT RECEIVED IN BED, ALERT AND ORIENTED X 4. ON REMOTE BROADCAST ENGINEER SINUS RHYTHM 64. PATIENT BREATHING NON-LABORED AND NO RESPIRATORY DISTRESS AT THIS TIME. IV ACCESS INTACT AND PATENT. PATIENT PRESENTING WITH NO PAIN AT THIS TIME. SAFETY PRECAUTIONS IMPLEMENTED WITH BED LOCKED, BILATERAL SIDE RAILS UP, BED ALARM ON, BED IN THE LOWEST POSITION, AND CALL LIGHT WITHIN EASY REACH. WILL CONTINUE TO MONITOR PATIENT.
[2020-03-08 08:00] VITALS: BP 113/63
--- NOTE | 2020-03-08 08:02 | NUR ---
TELE/RN CLOSING NOTES: PATIENT REMAINS IN BED, A/OX4, NO SOB NOTED. RESPIRATIONS EVEN AND UNLABORED. ON STITCH BONDING MACHINE TENDER HELPER SR 80S, IV SITE TO LEFT FA #20G INTACT AND PATENT, SL.SAFETY MEASURES ARE ON. CALL LIGHT WITHIN REACH. ALL NEEDS ATTENDED AT THIS TIME. NO SIGNIFICANT CHANGES IN CONDITION. WILL ENDORSE TO DAY SHIFT FOR MAURICE.
[2020-03-08] MEDS: DEXAMETHASONE SOD PHOSPHATE 10 MG/ML VIAL IV SCH (08:57)
[2020-03-08] MEDS: ENOXAPARIN SODIUM 40 MG/0.4 ML DISP.SYRIN SQ SCH ×2 (08:57→21:20)
[2020-03-08] MEDS: NIFEdipine XL (30MG) 30 MG TAB PO SCH (08:58)
[2020-03-08 12:00] VITALS: BP 106/59
[2020-03-08 16:00] VITALS: BP 110/53
--- NOTE | 2020-03-08 18:52 | NUR ---
RN CASE MANAGER NOTES PATIENT IN BED, ALERT AND ORIENTED X 4. ON MONITORING AND EVALUATION ADVISOR SINUS RHYTHM 62. PATIENT ON NASAL CANNULA, BREATHING NON-LABORED AND NO RESPIRATORY DISTRESS AT THIS TIME. IV ACCESS INTACT AND PATENT. PATIENT PRESENTING WITH NO PAIN AT THIS TIME. MET ALL OF PATIENT'S NEEDS. SAFETY PRECAUTIONS IMPLEMENTED WITH BED LOCKED, BILATERAL SIDE RAILS UP, BED ALARM ON, BED IN THE LOWEST POSITION, AND CALL LIGHT WITHIN EASY REACH. WILL ENDORSE PLAN OF CARE TO UPCOMING RN.
--- NOTE | 2020-03-08 19:15 | NUR ---
TELE/RN OPENING NOTES: RECEIVED PATIENT IN BED AWAKE, A/OX4, NO SOB NOTED. AMBULATORY WITH STEADY GAIT. RESPIRATIONS EVEN AND UNLABORED. AT THIS TIME, PT IS ON ROOM AIR AND TOLERATING WELL. PUTS ON 5L OXYGEN VIA NC WHEN HE NEEDS IT. ON AIR POLLUTION ANALYST SR 80S, IV SITE TO LEFT FA #20G INTACT AND PATENT, SL. NO REDNESS, NO INFILTRATION PRESENT. SAFETY MEASURES ARE ON. CALL LIGHT WITHIN REACH. ALL NEEDS ATTENDED AT THIS TIME. WILL CONTINUE TO MONITOR.
[2020-03-08 20:00] VITALS: BP 120/67
[2020-03-09] VITALS: BP 113/65
[2020-03-09 04:00] VITALS: BP 96/45
[2020-03-09 05:32] VITALS: BP 102/59
--- NOTE | 2020-03-09 06:22 | NUR ---
TELE/RN CLOSING NOTES: PATIENT REMAINS IN BED, A/OX4, NO SOB NOTED. RESPIRATIONS EVEN AND UNLABORED. SATURATING AT 95% ON 5L OXYGEN VIA NC. ON APPLICATIONS SALES REPRESENTATIVE SB 57, IV SITE TO LEFT FA #20G INTACT AND PATENT, SL. AMBULATORY AND USES THE URINAL. SAFETY MEASURES ARE ON. CALL LIGHT WITHIN REACH. ALL NEEDS ATTENDED AT THIS TIME. ALL DUE MEDS GIVEN ORDERED. NO SIGNIFICANT CHANGES IN CONDITION. SAFETY MEASURES IN PLACE. BED IN LOW, LOCKED POSITION. WILL ENDORSE TO DAY SHIFT FOR MAURICE.
--- NOTE | 2020-03-09 07:15 | NUR ---
RN Notes Patient Received. Patient is in bed awake, alert and oriented x4, and verbally responsive. Breathing is even and non labored. Patient is noted to be on room air with no acute distress noted. Patient is noted with LFA IV site with 20G saline lock. IV is patent and intact with no signs of infiltration noted. All needs attended to promptly. Will continue plan of care as ordered.
[2020-03-09 08:00] VITALS: BP 105/67
[2020-03-09] MEDS: DEXAMETHASONE SOD PHOSPHATE 10 MG/ML VIAL IV SCH (09:27)
[2020-03-09] MEDS: NIFEdipine XL (30MG) 30 MG TAB PO SCH (09:27)
[2020-03-09] MEDS: ENOXAPARIN SODIUM 40 MG/0.4 ML DISP.SYRIN SQ SCH (09:28)
[2020-03-09 12:00] VITALS: BP 116/71
[2020-03-09] MEDS ORDERED: NIFE-35 PO (14:14)
[2020-03-09] MEDS ORDERED: INFLUENZA VACCINE 2020-21 0.5 ML DISP.SYRIN IM ONE (15:00)
[2020-03-09] MEDS ORDERED: PNEUMOCOCCAL 23-VAL P-SAC VAC 0.5 ML VIAL SQ ONE (15:00)
[2020-03-09] MEDS: ACETAMINOPHEN 325 MG TABLET PO PRN (15:39)
--- NOTE | 2020-03-09 15:45 | NUR ---
RN NOTES Influenza vaccine administered as per ordered to right deltoid. Patient able to tolerate well with no adverse reactions noted. Pneumococcal vaccine administered to left deltoid with patient able to tolerate well. No Adverse reactions noted.
--- NOTE | 2020-03-09 15:50 | NUR ---
DISCHARGE Patient is noted with discharge orders. Patient is alert and oriented x4. Breathing even and non labored. No signs of acute distress noted. No SOB noted. Patient ambulatory with steady gait. All belongings reviewed with patient and noted to be present. IV site removed with catheter tip intact with gauze dressing in place. Tele monitor removed. Patient was educated on importance of follow up care with primary care physician and verbalized understanding. All questions were answered. Patient left the hospital and picked up by family member in stable condition.
--- NOTE | 2020-03-09 15:50 | NUR ---
DISCHARGE Patient is noted with discharge orders. Patient is alert and oriented x4. Breathing even and non labored. No signs of acute distress noted. No SOB noted. Patient ambulatory with steayd. All belongings reviewed with patient and noted to be present. IV site removed. Tele monitor removed. Patient was educated on importance of follow up care with primary care physician and verbalized understanding. All questions were answered. Patient left the hospital and picked up by family member.
== END 2020-03-09 15:50 | disposition home or self-care (01) | DRG 137 ==
LOC: ER 14:14 → TRANSITION 19:52 → TELE2 03-02 14:58
PROVIDERS: ADMIT Internal Medicine; ATTEND Nurse Practitioner Acute Care
PROC: XW033E5 Introduction of Remdesivir Anti-infective into Peripheral Vein, Percutaneous Approach, New Technology Group 5 (ICD-10-PCS; principal; 2020-03-02)
DX: U07.1 COVID-19 (principal); J96.01 Acute respiratory failure with hypoxia; E78.5 Hyperlipidemia, unspecified; J12.89 Other viral pneumonia; E43 Unspecified severe protein-calorie malnutrition; J18.9 Pneumonia, unspecified organism
CPT/HCPCS: 36415; 71045-TC; 80048-TC; 80053-TC; 80076-TC; 82248-TC; 82728-TC; 82962-TC; 83605-TC; 83615-TC; 83735-TC; 84100-TC; 84484-TC; 85025-TC; 85378-TC; 85610-TC; 85730-TC; 86140-TC; 87040-TC; 87081-TC; 90732; 94799-TC; 99082-TC; A4216; A4217; G0378; J0456; J0696; J1100; J1650; J7040; J7050; J7060; Q2036; U0003

== ENCOUNTER 2021-02-21 23:14 | Emergency (ER) | payer MEDICAID ==
[~2021-02-21] VITALS: Ht 162.6 cm; Wt 95.3 kg
[~2021-02-21 23:14] MED LIST: NIFE-35 PO
--- NOTE | 2021-02-21 23:23 | NUR ---
BIBDAUGHTER C/O CHEST PRESSURE X1 DAY, WITH NONRADIATING L SIDED CHEST PAIN. PATIENT ALERT AND ORIENTED X3. AMBULATORY WITH NON LABORED BREATHING. PLACED IN BED 09, ON A MONITOR AND POX
--- NOTE | 2021-02-21 23:24 | NUR ---
EMT @ BEDSIDE FOR EKG.
--- NOTE | 2021-02-21 23:45 | NUR ---
BLOOD SENT TO LAB
[2021-02-22 00:02] LABS: BASOPHILS # (AUTO) 0.1 K/uL (0.0-0.2); BASOPHILS % (AUTO) 0.9 % (0.0-2.0); EOSINOPHILS % (AUTO) 7.2 % (0.0-6.0); HEMATOCRIT 45 % (39-51); HEMOGLOBIN 15.6 g/dL (13.5-17.5); LYMPHOCYTES # (AUTO) 2.5 K/uL (0.8-4.8); LYMPHOCYTES % (AUTO) 41.9 % (20.0-44.0); MEAN CORPUSCULAR HGB CONC 35 g/dl (31.0-36.0); MEAN CORPUSCULAR VOLUME 96 fL (80-96); MONOCYTES # (AUTO) 0.5 K/uL (0.1-1.30); MONOCYTES % (AUTO) 8.6 % (2.0-12.0); NEUTROPHILS # (AUTO) 2.5 K/uL (1.8-8.9); NEUTROPHILS % (AUTO) 41.4 % (43.0-81.0); PLATELET COUNT (AUTO) 242 K/uL (150-450); RED BLOOD CELL COUNT(AUTO) 4.68 MIL/uL (4.5-6.0)
[2021-02-22 00:13] LABS: CALCIUM, SERUM 7.8 mg/dL (8.5-10.1); CARBON DIOXIDE 23 mmol/L (21-32); CHLORIDE 105 mmol/L (98-107); CREATININE 0.6 mg/dL (0.6-1.3); GLUCOSE 109 mg/dL (74-106); POTASSIUM 3.5 mmol/L (3.5-5.1); SODIUM SERUM 140 mmol/L (136-145); UREA NITROGEN, BLOOD 7 mg/dL (7-18)
[2021-02-22] MEDS ORDERED: KETOROLAC TROMETHAMINE INJ 30 MG/ML VIAL ONE (00:14)
[2021-02-22] MEDS ORDERED: MAG HYDROX/AL HYDROX/SIMETH 30 ML UDC ONE (00:14)
[2021-02-22] MEDS ORDERED: LIDOCAINE VISCOUS 2% UD 15 ML UDC ONE (00:14)
--- NOTE | 2021-02-22 00:19 | NUR ---
VERBAL ORDER TO CHANGE TORADOL 30MG IM TO IVP. NOTED AND CARRIED OUT
--- NOTE | 2021-02-22 00:25 | NUR ---
XRAY AT BEDSIDE
[2021-02-22] MEDS ORDERED: LIDOCAINE VISCOUS 2% UD 15 ML UDC MM ONE (00:30)
[2021-02-22] MEDS ORDERED: KETOROLAC TROMETHAMINE INJ 60 MG/2 ML VIAL IM ONE (00:30)
[2021-02-22] MEDS ORDERED: MAG HYDROX/AL HYDROX/SIMETH 30 ML UDC PO ONE (00:30)
[2021-02-22] MEDS ORDERED: ACETAMINOPHEN 650 MG/20.3 ML UDC PO ONE (01:30)
--- NOTE | 2021-02-22 01:38 | NUR ---
VERBAL ORDER 1G ADRY
[2021-02-22] MEDS ORDERED: ACETAMINOPHEN ES 500 MG TABLET ONE (01:39)
[2021-02-22] MEDS ORDERED: OMEP20CA15 PO (01:53)
--- NOTE | 2021-02-22 01:56 | NUR ---
Patient discharged to home in stable condition. Written and verbal after care instructions given. Patient verbalizes understanding of instruction. IV removed. Catheter intact and site benign. Pressure and 4x4 applied to site. No bleeding noted. PT ambulatory with a steady gait
[2021-02-22 02:03] VITALS: BP 110/70
== END 2021-02-22 01:56 | disposition home or self-care (01) ==
LOC: ER 23:14
DX: K21.9 Gastro-esophageal reflux disease without esophagitis (principal); I10 Essential (primary) hypertension; E78.5 Hyperlipidemia, unspecified; Z60.2 Problems related to living alone; Z79.899 Other long term (current) drug therapy
CPT/HCPCS: 36415; 71045; 80048; 84484; 85025; 93005; 96372; 99285; J1885

== ENCOUNTER 2022-06-16 20:21 | Emergency (ER) | payer MEDICAID, OTHER ==
[~2022-06-16] VITALS: Ht 157.5 cm; Wt 86.2 kg
[2022-06-16] MEDS ORDERED: ASPIRIN 325 MG TABLET PO ONE (20:30)
[2022-06-16] MEDS ORDERED: NITROGLYCERIN 0.4 MG/TAB BOTTLE SL ONE (20:30)
--- NOTE | 2022-06-16 20:30 | NUR ---
[id number] FRM HOME C/O CP X 1HR DINING HOST 2/10 PAIN PER PT "HE WAS HAVING AN ARGUMENT AT HOME" 325 ASPIRIN & 1 SPRAY NITRO GIVEN DINING HOST BY EMS. PRIMARILY SAUDI ARABIAN SPEAKING. AXO3 ABLE TO MAKE NEEDS KNOWN.
[2022-06-16] MEDS ORDERED: ASPIRIN 325 MG TABLET ONE (20:39)
[2022-06-16] MEDS ORDERED: NITROGLYCERIN 0.4 MG/TAB BOTTLE ONE (20:39)
[2022-06-16 20:41] LABS: BASOPHILS # (AUTO) 0.1 K/uL (0.0-0.2); BASOPHILS % (AUTO) 1.4 % (0.0-2.0); EOSINOPHILS % (AUTO) 3.9 % (0.0-6.0); HEMATOCRIT 43 % (39-51); HEMOGLOBIN 14.6 g/dL (13.5-17.5); LYMPHOCYTES # (AUTO) 2.1 K/uL (0.8-4.8); LYMPHOCYTES % (AUTO) 40.1 % (20.0-44.0); MEAN CORPUSCULAR HGB CONC 34 g/dl (31.0-36.0); MEAN CORPUSCULAR VOLUME 93 fL (80-96); MONOCYTES # (AUTO) 0.5 K/uL (0.1-1.30); MONOCYTES % (AUTO) 9.4 % (2.0-12.0); NEUTROPHILS # (AUTO) 2.4 K/uL (1.8-8.9); NEUTROPHILS % (AUTO) 45.2 % (43.0-81.0); PLATELET COUNT (AUTO) 242 K/uL (150-450); WHITE BLOOD COUNT (AUTO) 5.3 K/uL (4.3-11.0)
--- NOTE | 2022-06-16 20:41 | NUR ---
BLOOD COLLECTED AND SENT TO LAB
[2022-06-16 20:50] LABS: CALCIUM, SERUM 8.5 mg/dL (8.5-10.1); CARBON DIOXIDE 26 mmol/L (21-32); CHLORIDE 104 mmol/L (98-107); CREATININE 0.6 mg/dL (0.6-1.3); GLUCOSE 130 mg/dL (74-106); POTASSIUM 3.4 mmol/L (3.5-5.1); SODIUM SERUM 137 mmol/L (136-145); UREA NITROGEN, BLOOD 6 mg/dL (7-18)
[2022-06-16 22:26] VITALS: BP 114/64
--- NOTE | 2022-06-16 22:26 | NUR ---
Patient discharged to home in stable condition. Written and verbal after care instructions given. Patient verbalizes understanding of instruction.IV removed. Catheter intact and site benign. Pressure and 4x4 applied to site. No bleeding noted. Pt ambulatory with a steady gait
== END 2022-06-16 22:28 | disposition home or self-care (01) ==
LOC: ER 20:23
DX: R07.89 Other chest pain (principal); I10 Essential (primary) hypertension; Z79.899 Other long term (current) drug therapy; Z60.2 Problems related to living alone
CPT/HCPCS: 99285; 71045; 93005; 85025; 80048; 36415; 84484; 83880; A4223

== ENCOUNTER 2022-11-01 21:52 | Emergency (ER) | payer OTHER ==
[~2022-11-01] VITALS: Ht 165.1 cm; Wt 93.9 kg
[2022-11-01] MEDS ORDERED: NITROGLYCERIN 0.4 MG/TAB BOTTLE SL ONE (22:30)
[2022-11-01] MEDS ORDERED: NITROGLYCERIN 0.4 MG/TAB BOTTLE ONE (22:35)
[2022-11-01 23:04] LABS: BASOPHILS % (AUTO) 0.6 % (0.0-2.0); EOSINOPHILS # (AUTO) 0.3 K/uL (0.0-0.7); EOSINOPHILS % (AUTO) 4.1 % (0.0-6.0); HEMATOCRIT 46 % (39-51); HEMOGLOBIN 15.7 g/dL (13.5-17.5); LYMPHOCYTES # (AUTO) 2.2 K/uL (0.8-4.8); LYMPHOCYTES % (AUTO) 32.2 % (20.0-44.0); MEAN CORPUSCULAR HEMOGLOBIN 33 PG (26.0-33.0); MEAN CORPUSCULAR HGB CONC 34 g/dl (31.0-36.0); MEAN CORPUSCULAR VOLUME 95 fL (80-96); MONOCYTES # (AUTO) 0.5 K/uL (0.1-1.30); MONOCYTES % (AUTO) 7.9 % (2.0-12.0); NEUTROPHILS # (AUTO) 3.8 K/uL (1.8-8.9); NEUTROPHILS % (AUTO) 55.2 % (43.0-81.0); PLATELET COUNT (AUTO) 220 K/uL (150-450); RED BLOOD CELL COUNT(AUTO) 4.77 MIL/uL (4.5-6.0); RED CELL DISTRIBUTION WIDTH 12.8 % (11.5-15.0); WHITE BLOOD COUNT (AUTO) 6.8 K/uL (4.3-11.0)
[2022-11-01 23:17] LABS: CALCIUM, SERUM 9.1 mg/dL (8.5-10.1); CARBON DIOXIDE 25 mmol/L (21-32); CHLORIDE 104 mmol/L (98-107); CREATININE 0.7 mg/dL (0.6-1.3); GLUCOSE 134 mg/dL (74-106); POTASSIUM 3.6 mmol/L (3.5-5.1); SODIUM SERUM 137 mmol/L (136-145); UREA NITROGEN, BLOOD 8 mg/dL (7-18)
[2022-11-02 01:43] VITALS: BP 128/81; TEMP 98.1; O2SAT 99
== END 2022-11-02 01:44 | disposition home or self-care (01) ==
LOC: ER 21:55
DX: R07.89 Other chest pain (principal); I10 Essential (primary) hypertension; I25.2 Old myocardial infarction; Z60.2 Problems related to living alone
CPT/HCPCS: 36415; 71045-TC; 80048-TC; 84484-TC; 85025-TC; 85378-TC

== ENCOUNTER 2023-02-16 17:53 | Emergency (ER) | payer OTHER ==
[~2023-02-16] VITALS: Ht 160 cm; Wt 95.3 kg
[2023-02-16 18:48] VITALS: BP 147/81; TEMP 98.1
[2023-02-16] MEDS ORDERED: LIDOCAINE /MPF 1% VIAL 5 ML VIAL ONE (20:47)
[2023-02-16] MEDS ORDERED: TDAP [DIPH/PERTUSSIS/TET] 0.5 ML VIAL IM ONE ×2 (21:00→22:34)
[2023-02-16] MEDS ORDERED: LIDOCAINE HCL/PF 1% 30 ML VIAL TP ONE (21:00)
[2023-02-16] MEDS ORDERED: IBUP-1955 PO (23:13)
[2023-02-16] MEDS ORDERED: DOXY50CA2 PO (23:13)
[2023-02-16 23:20] VITALS: O2SAT 98
== END 2023-02-17 00:18 | disposition home or self-care (01) ==
LOC: ER 17:56
DX: S61.412A Laceration without foreign body of left hand, initial encounter (principal); I10 Essential (primary) hypertension; Z79.899 Other long term (current) drug therapy; Z60.2 Problems related to living alone; W23.0XXA Caught, crushed, jammed, or pinched between moving objects, initial encounter; Y93.89 Activity, other specified; Y92.89 Other specified places as the place of occurrence of the external cause; Y99.8 Other external cause status
CPT/HCPCS: 12002; 73130; 90471; 90715; 99283; A6403; J3490

== ENCOUNTER 2023-02-22 08:24 | Emergency (ER) | payer OTHER ==
[~2023-02-22] VITALS: Ht 167.6 cm; Wt 93.0 kg
[~2023-02-22 08:24] MED LIST changes: +DOXY50CA2 PO; +IBUP-1955 PO
[2023-02-22 08:30] VITALS: BP 136/97; TEMP 98.1; O2SAT 96
== END 2023-02-22 08:43 | disposition home or self-care (01) ==
LOC: ER 08:34
DX: S61.214D Laceration without foreign body of right ring finger without damage to nail, subsequent encounter (principal); I25.10 Atherosclerotic heart disease of native coronary artery without angina pectoris; I10 Essential (primary) hypertension; Z79.899 Other long term (current) drug therapy; Z60.2 Problems related to living alone